=== PATIENT | female | born 1955 | race Asian ===

== ENCOUNTER 2019-11-08 09:26 | Outpatient (CLI) | payer MEDICAID ==
[~2019-11-08] VITALS: Ht 152.4 cm; Wt 50.3 kg
[2019-11-08 15:05] VITALS: BP 120/76
[2019-11-08] MEDS ORDERED: ATORVASTATIN CA20 MG ORAL (15:05)
[2019-11-08] MEDS ORDERED: AMLODIPINE BES2.5 MG ORAL (15:05)
--- NOTE | 2019-11-09 15:30 | Consultation ---
DATE OF CONSULTATION: 11/09/2019 CHIEF COMPLAINT: Chronic GERD. HISTORY OF PRESENT ILLNESS: The patient is a 63-year-old [place] female with past medical history of chronic GERD symptoms. The patient already had reflux measures done including on PPI. Apparently PPI helped a little bit, but not completely resolved the problem. She apparently had an endoscopy done 2 years ago according to the daughter that there was some abnormality in the endoscopy. She is not exactly sure what the biopsy showed but the patient was recommended to have another endoscopy. PAST MEDICAL HISTORY: 1. Hypertension. 2. Hypercholesterolemia. 3. Chronic GERD. 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 MEDICATIONS: Please see medication reconciliation list. FAMILY HISTORY: Father had coronary artery disease. Mother had coronary artery disease, hypertension, diabetes. SOCIAL HISTORY: The patient denies any tobacco, alcohol, or drug use. ALLERGIES: No known allergies. REVIEW OF SYSTEMS: Positive for abdominal pain and chronic GERD. PHYSICAL EXAMINATION: VITAL SIGNS: Temperature 98.4, blood pressure 120/76, pulse 61, respirations 20. HEENT: Normocephalic and atraumatic. Sclerae anicteric. NECK: Supple. No evidence of obvious lymphadenopathy. CARDIOVASCULAR: Regular rate and rhythm. Plus S1, S2. LUNGS: Clear to auscultation bilaterally. ABDOMEN: Positive bowel sounds. Soft and nontender. No rebound. No guarding. No peritoneal sign. EXTREMITIES: No cyanosis. No clubbing. No edema. ASSESSMENT/PLAN: The patient is a 63-year-old [place] female with chronic gastroesophageal reflux disease with partial response to the PPI with some prior history of abnormal EGD per family. The patient will need repeat endoscopy, she agreed. We will try to get authorization. Meanwhile, the patient was given prescription for omeprazole. She is little bit hesitant to take the medication. She wants to wait until after the endoscopy. Andrez Mobley M.D. DR: Lorena JOB#: [id number] CC:
== END 2019-11-08 11:26 | disposition home or self-care (01) ==
LOC: PAN 09:26
DX: K21.9 Gastro-esophageal reflux disease without esophagitis (principal); E78.00 Pure hypercholesterolemia, unspecified; I10 Essential (primary) hypertension; R10.9 Unspecified abdominal pain
CPT/HCPCS: G0463

== ENCOUNTER 2020-04-30 08:59 | Day surgery (SDC) | payer MEDICARE, MEDICAID ==
[~2020-04-30] VITALS: Ht 152.4 cm; Wt 53.5 kg
[2020-04-30] VITALS (9 sets, daily range): BP systolic 127–143; BP diastolic 77–85
[~2020-04-30 08:59] MED LIST: AMLODIPINE BES2.5 MG ORAL; ATORVASTATIN CA20 MG ORAL; Atropine Inj 1mg/10ml Syr IV PRN; DiphenhydrAMINE 50mg/ml Inj IVP PRN; LR 1000ml 1,000 ML IVLG SCH; Midazolam 2mg/2ml Inj IVP PRN; fentaNYL 100 mcg/2 mL IV PRN
--- NOTE | 2020-04-30 09:52 | Anethesia Preoperative Eval ---
Anesthesia Pre-op PMH/ROS General Date of Evaluation: Apr 30, 2020 Time of Evaluation: 09:49 Anesthesiologist: robbi ASA Score: ASA 3 Mallampati Score Class I : Soft palate, uvula, fauces, pillars visible Class II: Soft palate, uvula, fauces visible Class III: Soft palate, base of uvula visible Class IV: Only hard plate visible Mallampati Classification: Class II Surgeon: enoc Diagnosis: gerd Surgical Procedure: egd Anesthesia History: none Social History: current smoker Family History: no anesthesia problems Allergies: Coded Allergies: No Known Allergies (Unverified , 04/27/20) Medications: see eMAR Patient NPO?: Yes Past Medical History Cardiovascular: Reports: HTN, other - hypercholesterolemia Neurologic/Psychiatric: Reports: other - benign brain tumor Hematology/Immune: Reports: other - covid-19 negative Anesthesia Pre-op Phys. Exam Physician Exam Constitutional: NAD Neurologic: CN 2-12 intact Cardiovascular: RRR Respiratory: CTA Gastrointestinal: S/NT/ND Airway Exam Mallampati Score: Class II MO: limited Neck: flexible TMD: 2fb ROM: limited Anesthesia Pre-op A/P Labs Microbiology Date/Time Source Procedure Growth Status 04/27/20 10:20 Nasopharynx SARS-CoV-2 RdRp Gene Assay - Final Complete Risk Assessment & Plan Assessment: asa3 Plan: mac Status Change Before Surgery: No Pre-Antibiotics Drug: Virgie Peña MD Apr 30, 2020 09:52
--- NOTE | 2020-04-30 10:38 | Short Stay Surgery H&P ---
History of Present Illness History of Present Illness Chief Complaint see recent office consult note HPI Joel Henley is a 64 year old female who was admitted on for GERD Patient History Allergies: Coded Allergies: No Known Allergies (Unverified , 04/27/20) Medication History Scheduled Amlodipine Besylate* (Amlodipine Besylate*), 2.5 MG ORAL DAILY, (Reported) Atorvastatin Calcium* (Atorvastatin Calcium*), 10 MG ORAL BEDTIME, (Reported) Physical Exam Vital Signs Last Vital Signs Date Time Temp Pulse Resp B/P (MAP) Pulse Ox O2 Delivery O2 Flow Rate FiO2 04/30/20 09:53 Room Air 04/30/20 09:48 98.0 71 18 142/83 98 Plan Attestation Are the patient's medical conditions optimized for surgery? Andrez Mobley MD Apr 30, 2020 10:38
--- NOTE | 2020-04-30 10:39 | Pre-Procedure Note/Attestation ---
Pre-Procedure Note/Attestation Complete Prior to Procedure Planned Procedure: not applicable Procedure Narrative: egd Indications for Procedure Pre-Operative Diagnosis: gerd Attestation I attest that I discussed the nature of the procedure; its benefits; risks and complications; and alternatives (and the risks and benefits of such alternatives ), prior to the procedure, with the patient (or the patient's legal small business representative). I attest that, if there was a reasonable possibility of needing a blood transfusion, the patient (or the patient's legal small business representative) was given the [facility] standardized written summary, pursuant to the [place] Blood Safety Act ([place] Health and Safety Code # 1645, as amended). I attest that I re-evaluated the patient just prior to the surgery and that there has been no change in the patient's H&P, except as documented below: Andrez Mobley MD Apr 30, 2020 10:39
[2020-04-30] MEDS ORDERED: Lidocaine 1% MPF 10mg/ml 5ml ONE (11:00)
[2020-04-30] MEDS ORDERED: LR 1000ml ONE (11:00)
--- NOTE | 2020-04-30 11:14 | Endoscopy Procedure Note ---
Endoscopy Procedure Note General Indication for Procedure: GERD Procedures Performed: EGD Operative Findings/Diagnosis: gastritis Specimen: yes Pt Tolerated Procedure Well: Yes Estimated Blood Loss: none Anesthesia Anesthesiologist: tenisha ramirez Anesthesia: MAC Inserted Devices Implant(s) used?: No GI Core Measures 50 yrs or older w/o bx or poly: Not Applicable 10yrs. F/U recommended: Not Applicable Andrez Mobley MD Apr 30, 2020 11:14
--- NOTE | 2020-04-30 11:34 | Immediate Post-Op Evaluation ---
Immediate Post-Op Evalulation Immediate Post-Op Evalulation Procedure: egd w/bx Date of Evaluation: Apr 30, 2020 Time of Evaluation: 11:35 IV Fluids: 450ml lr Blood Products: none Estimated Blood Loss: negligible Blood Pressure Systolic: 127 Blood Pressure Diastolic: 77 Pulse Rate: 65 Respiratory Rate: 18 O2 Sat by Pulse Oximetry: 97 Temperature (Fahrenheit): 97.0 Pain Score (1-10): 0 Nausea: No Vomiting: No Complications none Patient Status: awake, reacts, patent Hydration Status: adequate Drug: Virgie Peña MD Apr 30, 2020 11:34
--- NOTE | 2020-04-30 11:41 | 48 Hour Post Anesthesia Eval ---
Post Anesthesia Evaluation Procedure: egd w/bx Date of Evaluation: Apr 30, 2020 Time of Evaluation: 11:37 Blood Pressure Systolic: 143 0: 85 Pulse Rate: 63 Respiratory Rate: 18 Temperature (Fahrenheit): 97.0 O2 Sat by Pulse Oximetry: 99 Airway: patent Nausea: No Vomiting: No Pain Intensity: 0 Hydration Status: adequate Cardiopulmonary Status: stable Mental Status/LOC: patient returned to baseline Post-Anesthesia Complications: none Follow-up care needed: N/A Virgie Goldsmith MD Apr 30, 2020 11:41
--- NOTE | 2020-04-30 14:00 | Procedure Note ---
DATE OF PROCEDURE: 04/30/2020 SURGEON: Andrez Mobley MD. PROCEDURE: Upper endoscopy with biopsy. ANESTHESIA: Per Dr. Whipple. INSTRUMENT: Olympus adult flexible upper endoscope. INDICATION: Chronic GERD. REASON FOR PROCEDURE: The procedure, risks, benefits, and possible consequences, including hemorrhage, aspiration, perforation and infection, and alternative treatments, were explained to the patient/legal guardian by Dr. Andrez Mobley and the patient/legal guardian understood and accepted these risks. PROCEDURE IN DETAIL: After informed consent was obtained and the patient was adequately sedated, Olympus upper endoscope was advanced from mouth into the second portion of the duodenum and retroflexion was performed in the stomach. GE junction was at 34 centimeter from the incisors. No evidence of any esophagitis. No evidence of inlet patch. No esophageal varices. In the stomach, there was evidence of mild diffuse antral gastritis. Biopsy from antrum was obtained to rule out H. pylori infection. There was one gastric submucosal lesion in the fundus of the stomach measured roughly about 6 mm to 7 mm in size. Biopsy from this area was also obtained. The rest of the examination grossly within normal limits. The patient tolerated the procedure very well without any complication. SUMMARY OF FINDINGS: 1. Gastritis, status post biopsy. 2. One gastric nodule in the fundus of the stomach, status post biopsy, possibly submucosal lesion. RECOMMENDATIONS: 1. Follow pathology and treat accordingly. 2. The patient might benefit from EUS for evaluation of this gastric submucosal lesion. Andrez Mobley M.D. DR: WYATT JOB#: [id number] CC:
== END 2020-04-30 12:30 | disposition home or self-care (01) ==
LOC: GAS 08:59
DX: K21.9 Gastro-esophageal reflux disease without esophagitis (principal); K29.70 Gastritis, unspecified, without bleeding; F17.200 Nicotine dependence, unspecified, uncomplicated; I10 Essential (primary) hypertension; E78.00 Pure hypercholesterolemia, unspecified
CPT/HCPCS: 43239; 94003; J2704; J7120; U0002; 94150

== ENCOUNTER 2020-05-10 13:14 | Outpatient (CLI) | payer MEDICARE, MEDICAID ==
[~2020-05-10 13:14] MED LIST changes: -Atropine Inj 1mg/10ml Syr IV PRN; -DiphenhydrAMINE 50mg/ml Inj IVP PRN; -LR 1000ml 1,000 ML IVLG SCH; -Midazolam 2mg/2ml Inj IVP PRN; -fentaNYL 100 mcg/2 mL IV PRN
--- NOTE | 2020-05-10 14:07 | General Progress Note ---
Assessment/Plan Problem List: (1) GERD (gastroesophageal reflux disease) ICD Codes: K21.9 - Gastro-esophageal reflux disease without esophagitis SNOMED: 512322651 Assessment/Plan: s/p EGD gastritis HP neg cont ppi RTC one month for tampering last colon per patient 3 years ago Subjective ROS Limited/Unobtainable: Yes Allergies: Coded Allergies: No Known Allergies (Unverified , 04/27/20) Objective General Appearance: alert EENT: normal ENT inspection Neck: supple Cardiovascular: normal rate Respiratory/Chest: decreased breath sounds Abdomen: normal bowel sounds, non tender, soft Extremities: non-tender Andrez Mobley MD May 10, 2020 14:07
== END 2020-05-10 15:14 | disposition home or self-care (01) ==
LOC: PAN 13:14
DX: K21.9 Gastro-esophageal reflux disease without esophagitis (principal); K29.70 Gastritis, unspecified, without bleeding
CPT/HCPCS: 99212

== ENCOUNTER 2020-08-07 09:03 | Outpatient (CLI) | payer MEDICARE, MEDICAID ==
--- NOTE | 2020-08-07 09:12 | General Progress Note ---
Subjective ROS Limited/Unobtainable: Yes Allergies: Coded Allergies: No Known Allergies (Unverified , 04/27/20) Objective General Appearance: alert EENT: normal ENT inspection Neck: supple Cardiovascular: normal rate Respiratory/Chest: lungs clear Abdomen: normal bowel sounds, non tender, soft Extremities: non-tender Assessment/Plan Assessment/Plan: Assessment/Plan Problem List: (1) GERD (gastroesophageal reflux disease) ICD Codes: K21.9 - Gastro-esophageal reflux disease without esophagitis SNOMED: 496251305 Assessment/Plan: s/p EGD gastritis HP neg decrease omperazole to 20 mg BID add Baclofen 10 mg RTC one month for tampering last colon per patient 3 years ago Andrez Mobley MD Aug 07, 2020 09:12
== END 2020-08-07 11:03 | disposition home or self-care (01) ==
LOC: PAN 09:03
DX: K21.9 Gastro-esophageal reflux disease without esophagitis (principal); K29.70 Gastritis, unspecified, without bleeding
CPT/HCPCS: 99212

== ENCOUNTER 2020-09-25 10:13 | Outpatient (CLI) | payer MEDICARE, MEDICAID ==
--- NOTE | 2020-09-25 14:41 | General Progress Note ---
Subjective ROS Limited/Unobtainable: Yes Allergies: Coded Allergies: No Known Allergies (Unverified , 04/27/20) Objective General Appearance: alert EENT: normal ENT inspection Neck: supple Cardiovascular: normal rate Respiratory/Chest: decreased breath sounds Abdomen: normal bowel sounds, non tender, soft Extremities: non-tender Assessment/Plan Assessment/Plan: Assessment/Plan Problem List: (1) GERD (gastroesophageal reflux disease) ICD Codes: K21.9 - Gastro-esophageal reflux disease without esophagitis SNOMED: 053778264 Assessment/Plan: s/p EGD gastritis HP neg increase omperazole to 40 mg BID if Dexilant not approved add Baclofen 10 mg>>> did not work RTC one month for tampering last colon per patient 3 years ago Andrez Mobley MD Sep 25, 2020 14:41
== END 2020-09-25 12:13 | disposition home or self-care (01) ==
LOC: PAN 10:13
DX: K21.9 Gastro-esophageal reflux disease without esophagitis (principal); K29.70 Gastritis, unspecified, without bleeding
CPT/HCPCS: 99212